=== PATIENT | male | born 1955 | race Caucasian/White ===

== ENCOUNTER 2024-06-02 22:56 | Inpatient (IN) | payer OTHER ==
[2024-06-03] MEDS ORDERED: Ondansetron ODT 4 MG TAB PO PRN (01:39)
[2024-06-03] MEDS ORDERED: Ondansetron PF 4 MG/2 ML Vial IVP PRN (01:39)
[2024-06-03] MEDS ORDERED: Calcium Carbonate 500 MG ChewTAB PO PRN (01:39)
[2024-06-03] MEDS ORDERED: Acetaminophen 650 MG Suppository PR PRN (01:39)
[2024-06-03 03:30] VITALS: BMI 39.0
[2024-06-03] MEDS: Vancomycin (BATCH) 2.5 GM in Premix 1 BAG IVPB SCH (05:55)
[2024-06-03] MEDS: Acetaminophen 325 MG TAB PO SCH (05:58)
[2024-06-03 06:22] LABS: #Basophils 0.06 10x3/uL (0.0-0.2); %Basophils 0.8 % (0.0-1.0); %Eosinophils 6.6 % (0.0-10.0); %Lymphocytes 26.2 % (21.0-51.0); %Monocytes 8.6 % (0.0-10.0); %Neutrophils 57.4 % (42.0-75.0); Hematocrit 42.5 % (42.0-52.0); Hemoglobin 14.2 g/dL (14.0-18.0); Mean Corpuscular HGB CONC 33.4 g/dL (32.0-36.0); Mean Corpuscular Hemoglobin 30.6 pg (27.0-31.0); Mean Corpuscular Volume 91.6 fL (78.0-98.0); Mean Platelet Volume 9.9 fL (7.4-10.4); Platelet Count 225 10x3/uL (130-400); RBC Distribution Width 14.6 % (11.5-14.5); Red Blood Cell (RBC) Count 4.64 mill/uL (4.70-6.10)
[2024-06-03 06:43] LABS: ALT (SGPT) 17 U/L (8-55); AST (SGOT) 19 U/L (5-34); Albumin 3.1 g/dL (3.4-4.8); Alkaline Phosphatase 64 U/L (40-110); Anion Gap 12 mmol/L (10-20); BUN (Urea Nitrogen) 18 mg/dL (8.4-25.7); Bilirubin, Total 0.6 mg/dL (0.2-1.2); Calc. Creatinine Clearance 143 mL/min (70-130); Calcium 8.5 mg/dL (7.8-10.44); Carbon Dioxide 24 mmol/L (23-31); Chloride 106 mmol/L (98-107); Estimated GFR 91; Globulin 4.6 g/dL (2.4-3.5); Glucose 117 mg/dL (83-110); Protein, Total 7.7 g/dL (5.8-8.1); Sodium 138 mmol/L (136-145)
[2024-06-03] MEDS ORDERED: Vancomycin (BATCH) 1.5 GM in Premix 1 BAG IVPB SCH (09:00)
[2024-06-03] MEDS: Oxybutynin 5 MG TAB PO SCH (09:02)
[2024-06-03] MEDS: Amlodipine 10 MG TAB PO SCH (09:02)
[2024-06-03] MEDS: Furosemide 20 MG TAB PO SCH (09:02)
[2024-06-03] MEDS: Famotidine/PF 20 mg/2ml Vial SLOW IVP SCH (09:03)
[2024-06-03] MEDS: Famotidine 20 MG TAB PO SCH (09:03)
[2024-06-03] MEDS: Lisinopril 10 MG TAB PO SCH (09:03)
[2024-06-03] MEDS: Calcium Carbonate 600 MG + Vit D TAB PO SCH (09:03)
[2024-06-03] MEDS: Simvastatin 10 MG TAB PO SCH (22:07)
[2024-06-03] MEDS: VANCOMYCIN 1.25 GM/250 ML BAG 1.25 GM in Premix 1 BAG IVPB SCH (22:07)
[2024-06-04 06:47] LABS: Vancomycin, Random 21.8 ug/mL (See Comment)
[2024-06-04] MEDS: Vancomycin 1 GM in Premix 1 BAG IVPB SCH (20:41)
[2024-06-05 06:00] LABS: Hematocrit 44.5 % (42.0-52.0); Hemoglobin 14.9 g/dL (14.0-18.0); Mean Corpuscular HGB CONC 33.5 g/dL (32.0-36.0); Mean Corpuscular Hemoglobin 30.7 pg (27.0-31.0); Mean Corpuscular Volume 91.6 fL (78.0-98.0); Mean Platelet Volume 10.1 fL (7.4-10.4); Platelet Count 213 10x3/uL (130-400); RBC Distribution Width 14.7 % (11.5-14.5); Red Blood Cell (RBC) Count 4.86 mill/uL (4.70-6.10)
[2024-06-05 06:24] LABS: Anion Gap 9 mmol/L (10-20); BUN (Urea Nitrogen) 22 mg/dL (8.4-25.7); Calc. Creatinine Clearance 131 mL/min (70-130); Calcium 8.7 mg/dL (7.8-10.44); Carbon Dioxide 25 mmol/L (23-31); Chloride 107 mmol/L (98-107); Estimated GFR 82; Glucose 122 mg/dL (83-110); Potassium 3.9 mmol/L (3.5-5.1); Sodium 137 mmol/L (136-145)
[2024-06-06 05:43] LABS: Vancomycin, Random 24.3 ug/mL (See Comment)
[2024-06-07] MEDS: Vancomycin 1.5 GRAM/300 ML BAG 1.5 GM in Premix 1 BAG IVPB SCH (09:25)
[2024-06-08 06:21] LABS: Hemoglobin 15.6 g/dL (14.0-18.0); Mean Corpuscular HGB CONC 33.2 g/dL (32.0-36.0); Mean Corpuscular Hemoglobin 30.1 pg (27.0-31.0); Mean Corpuscular Volume 90.6 fL (78.0-98.0); Platelet Count 231 10x3/uL (130-400); RBC Distribution Width 14.5 % (11.5-14.5); Red Blood Cell (RBC) Count 5.19 mill/uL (4.70-6.10)
[2024-06-08 07:01] LABS: Vancomycin, Random 14.3 ug/mL (See Comment)
[2024-06-08 07:03] LABS: Anion Gap 13 mmol/L (10-20); BUN (Urea Nitrogen) 26 mg/dL (8.4-25.7); Calc. Creatinine Clearance 125 mL/min (70-130); Calcium 8.7 mg/dL (7.8-10.44); Carbon Dioxide 23 mmol/L (23-31); Chloride 106 mmol/L (98-107); Estimated GFR 78; Glucose 119 mg/dL (83-110); Potassium 3.9 mmol/L (3.5-5.1); Sodium 138 mmol/L (136-145)
[2024-06-08 14:57] VITALS: TEMP 98.3
[2024-06-08 15:01] VITALS: BP 114/77
[2024-06-08] MEDS: Cephalexin 250 MG CAP PO SCH (15:36)
== END 2024-06-08 17:09 | DRG 603 ==
LOC: EEVIPCON 06-03 00:11 → T4-B 06-03 00:11 → OBSVTOIN 06-03 12:01
PROVIDERS: ADMIT Student in an Organized Health Care Education/Training Program; ATTEND Internal Medicine
DX: L03.116 Cellulitis of left lower limb (principal); I10 Essential (primary) hypertension; Z86.73 Personal history of transient ischemic attack (TIA), and cerebral infarction without residual deficits; Z99.3 Dependence on wheelchair; E66.9 Obesity, unspecified; E78.5 Hyperlipidemia, unspecified; Z68.39 Body mass index [BMI] 39.0-39.9, adult
CPT/HCPCS: 36415; 36416; 80048; 80053; 80202; 82565; 85025; 85027; 93970; 96374; G0378; J3370; J3490

== ENCOUNTER 2025-01-07 18:37 | Inpatient (IN) | payer OTHER ==
[~2025-01-07 18:37] MED LIST: Iopamidol-370 76% 500 ML MDV (1 ML CHARGE) ONE
[2025-01-07 19:10] LABS: #Basophils 0.05 10x3/uL (0.0-0.2); #Eosinophils 0.06 10x3/uL (0.0-0.7); #Monocytes 0.35 10x3/uL (0.11-0.59); #Neutrophils 13.29 10x3/uL (1.40-6.50); %Basophils 0.4 % (0.0-1.0); %Eosinophils 0.4 % (0.0-10.0); %Lymphocytes 2.4 % (21.0-51.0); %Monocytes 2.5 % (0.0-10.0); %Neutrophils 93.6 % (42.0-75.0); Hematocrit 43.7 % (42.0-52.0); Hemoglobin 14.4 g/dL (14.0-18.0); Mean Corpuscular Hemoglobin 30.5 pg (27.0-31.0); Mean Corpuscular Volume 92.6 fL (78.0-98.0); Platelet Count 236 10x3/uL (130-400); Red Blood Cell (RBC) Count 4.72 mill/uL (4.70-6.10); White Blood Cell (WBC) Count 14.19 10x3/uL (4.8-10.8)
[2025-01-07 19:24] LABS: Lipase 12 U/L (8-78)
[2025-01-07 19:27] LABS: Acetaminophen Less than 10 mcg/mL (Less than 10); Salicylate Less than 8.0 mg/dL (Less than 8.0)
[2025-01-07 19:28] LABS: ALT (SGPT) 46 U/L (Less than 45); AST (SGOT) 51 U/L (11-34); Albumin 3.3 g/dL (3.1-4.5); Alkaline Phosphatase 79 U/L (40-110); Anion Gap 16 mmol/L (10-20); BUN (Urea Nitrogen) 20 mg/dL (8.4-25.7); Bilirubin, Total 0.7 mg/dL (0.3-1.2); CK (CPK) 183 U/L (30-200); Calc. Creatinine Clearance 0 mL/min (70-130); Calcium 8.5 mg/dL (7.8-10.44); Carbon Dioxide 23 mmol/L (23-31); Chloride 103 mmol/L (98-107); Globulin 4.1 g/dL (2.4-3.5); Glucose 113 mg/dL (83-110); Potassium 4.3 mmol/L (3.5-5.1); Sodium 138 mmol/L (136-145)
[2025-01-07 19:31] LABS: Troponin I Less than 0.010 ng/mL (< 0.028)
[2025-01-07] MEDS ORDERED: Ondansetron PF 4 MG/2 ML Vial ONE (21:10)
[2025-01-07] MEDS ORDERED: Ketorolac Tromethamine 30 MG (1 mL) VIAL ONE (21:10)
[2025-01-07 21:54] LABS: Bacteria/HPF None Seen HPF (None Seen); CAUTI Indications for Culture Alt mental st,lethar; Glucose, Urine (Dipstick) Normal (Negative); Leukocyte Negative Leu/uL (Negative); Protein, Urine (Dipstick) Negative (Neg-Trace); RBC/HPF 0-3 HPF (0-3); Specific Gravity, Urine 1.026 (1.002-1.036); WBC/HPF 0-3 HPF (0-3)
[2025-01-07 21:58] LABS: Urine Culture Reflex No No
[2025-01-07 22:01] LABS: Cocaine Metabolite Screen Negative (Negative); THC/Cannabinoid Screen Negative (Negative); Tricyclic Screen Negative (Negative)
[2025-01-08 00:08] VITALS: BMI 38.9
[2025-01-08] MEDS: Vancomycin (BATCH) 2.5 GM in Premix 1 BAG IVPB SCH (00:08)
[2025-01-08] MEDS: Albumin 5% 12.5 GM (250 mL) BOT IVPB SCH (00:32)
[2025-01-08 02:00] LABS: Troponin I 0.022 ng/mL (< 0.028)
[2025-01-08] MEDS ORDERED: Ondansetron PF 4 MG/2 ML Vial IVP PRN (03:17)
[2025-01-08] MEDS ORDERED: Calcium Carbonate 500 MG ChewTAB PO PRN (03:17)
[2025-01-08] MEDS ORDERED: Acetaminophen 325 MG TAB PO PRN (03:17)
[2025-01-08] MEDS ORDERED: Electrolyte Replacement Protocol 1 EACH FS SCH (03:30)
[2025-01-08 04:08] LABS: Albumin 3.1 g/dL (3.1-4.5); Anion Gap 13 mmol/L (10-20); BUN (Urea Nitrogen) 21 mg/dL (8.4-25.7); BUN/Creatinine Ratio 16.41; Calc. Creatinine Clearance 98 mL/min (70-130); Calcium 7.9 mg/dL (7.8-10.44); Carbon Dioxide 21 mmol/L (23-31); Chloride 109 mmol/L (98-107); Glucose 103 mg/dL (83-110); Potassium 3.4 mmol/L (3.5-5.1); Sodium 140 mmol/L (136-145)
[2025-01-08 04:13] LABS: Hematocrit 43.0 % (42.0-52.0); Hemoglobin 14.1 g/dL (14.0-18.0); Mean Corpuscular Hemoglobin 30.6 pg (27.0-31.0); Mean Corpuscular Volume 93.3 fL (78.0-98.0); Platelet Count 200 10x3/uL (130-400); Red Blood Cell (RBC) Count 4.61 mill/uL (4.70-6.10); White Blood Cell (WBC) Count 32.35 10x3/uL (4.8-10.8)
[2025-01-08 04:15] LABS: Troponin I 0.031 ng/mL (< 0.028)
[2025-01-08 04:35] LABS: Vancomycin, Random 20.2 ug/mL (See Comment)
[2025-01-08 05:05] LABS: SARS-CoV-2 E Target Negative; SARS-CoV-2 N2 Target Negative; SARS-CoV-2 NAA Rapid Test Not Detected (NotDetected); SARS-CoV-2 RdRP gene Negative
[2025-01-08] MEDS: Vancomycin 1.25 GM / NS 250 ML VIAL-2-BAG IVPB SCH (08:58)
[2025-01-08] MEDS ORDERED: Vancomycin (BATCH) 1.5 GM/300 ML BAG IVPB SCH (09:00)
[2025-01-08] MEDS: Aspirin 81 mg Enteric Coated Tablet ONE (17:56)
[2025-01-08] MEDS: Famotidine/PF 20 mg/2ml Vial SLOW IVP SCH (20:31)
[2025-01-08] MEDS: Vancomycin 1 GM in Premix 1 BAG IVPB SCH (20:31)
[2025-01-08] MEDS: Enoxaparin 40 MG (0.4 mL) SYRINGE SC SCH (20:31)
[2025-01-09 05:09] LABS: #Basophils 0.06 10x3/uL (0.0-0.2); #Eosinophils Less than 0.03 10x3/uL (0.0-0.7); #Monocytes 0.95 10x3/uL (0.11-0.59); #Neutrophils 22.52 10x3/uL (1.40-6.50); %Basophils 0.2 % (0.0-1.0); %Eosinophils 0.0 % (0.0-10.0); %Lymphocytes 3.2 % (21.0-51.0); %Monocytes 3.8 % (0.0-10.0); %Neutrophils 90.1 % (42.0-75.0); Hematocrit 37.8 % (42.0-52.0); Hemoglobin 12.5 g/dL (14.0-18.0); Mean Corpuscular Hemoglobin 30.5 pg (27.0-31.0); Mean Corpuscular Volume 92.2 fL (78.0-98.0); Platelet Count 197 10x3/uL (130-400); Red Blood Cell (RBC) Count 4.10 mill/uL (4.70-6.10); White Blood Cell (WBC) Count 25.01 10x3/uL (4.8-10.8)
[2025-01-09 05:19] LABS: ALT (SGPT) 52 U/L (Less than 45); AST (SGOT) 45 U/L (11-34); Albumin 2.7 g/dL (3.1-4.5); Alkaline Phosphatase 59 U/L (40-110); Anion Gap 12 mmol/L (10-20); BUN (Urea Nitrogen) 29 mg/dL (8.4-25.7); Bilirubin, Total 0.6 mg/dL (0.3-1.2); Calc. Creatinine Clearance 136 mL/min (70-130); Calcium 8.0 mg/dL (7.8-10.44); Carbon Dioxide 20 mmol/L (23-31); Chloride 109 mmol/L (98-107); Globulin 3.7 g/dL (2.4-3.5); Glucose 114 mg/dL (83-110); Potassium 3.5 mmol/L (3.5-5.1); Sodium 137 mmol/L (136-145)
[2025-01-09 05:47] LABS: Platelet Adequacy Comment Platelets Normal; Polychromasia SLIGHT = 2-3 cells HPF (0-2)
[2025-01-09] MEDS ORDERED: Acetaminophen 325 MG TAB PO PRN (07:40)
[2025-01-09] MEDS: Aspirin 81 mg Enteric Coated Tablet PO SCH (09:21)
[2025-01-09] MEDS: Potassium Bicarbonate/Cit Ac 20 MEQ TAB PO SCH (09:26)
[2025-01-09] MEDS: Vancomycin 1.25 GM / NS 250 ML VIAL-2-BAG IVPB SCH (20:30)
[2025-01-10 05:40] LABS: #Basophils 0.07 10x3/uL (0.0-0.2); #Eosinophils 0.15 10x3/uL (0.0-0.7); #Monocytes 1.07 10x3/uL (0.11-0.59); #Neutrophils 17.22 10x3/uL (1.40-6.50); %Basophils 0.4 % (0.0-1.0); %Eosinophils 0.8 % (0.0-10.0); %Lymphocytes 5.0 % (21.0-51.0); %Monocytes 5.4 % (0.0-10.0); %Neutrophils 87.5 % (42.0-75.0); Hematocrit 38.9 % (42.0-52.0); Hemoglobin 12.9 g/dL (14.0-18.0); Mean Corpuscular Hemoglobin 30.5 pg (27.0-31.0); Mean Corpuscular Volume 92.0 fL (78.0-98.0); Platelet Count 195 10x3/uL (130-400); Red Blood Cell (RBC) Count 4.23 mill/uL (4.70-6.10); White Blood Cell (WBC) Count 19.68 10x3/uL (4.8-10.8)
[2025-01-10 05:53] LABS: Vancomycin, Random 17.9 ug/mL (See Comment)
[2025-01-10 05:56] LABS: ALT (SGPT) 49 U/L (Less than 45); AST (SGOT) 37 U/L (11-34); Albumin 2.7 g/dL (3.1-4.5); Alkaline Phosphatase 64 U/L (40-110); Anion Gap 12 mmol/L (10-20); BUN (Urea Nitrogen) 23 mg/dL (8.4-25.7); Bilirubin, Total 0.6 mg/dL (0.3-1.2); Calc. Creatinine Clearance 165 mL/min (70-130); Calcium 8.3 mg/dL (7.8-10.44); Carbon Dioxide 20 mmol/L (23-31); Chloride 108 mmol/L (98-107); Globulin 4.2 g/dL (2.4-3.5); Glucose 120 mg/dL (83-110); Potassium 3.7 mmol/L (3.5-5.1); Sodium 136 mmol/L (136-145)
[2025-01-11 04:46] LABS: #Basophils 0.07 10x3/uL (0.0-0.2); #Eosinophils 0.34 10x3/uL (0.0-0.7); #Monocytes 0.99 10x3/uL (0.11-0.59); #Neutrophils 9.20 10x3/uL (1.40-6.50); %Basophils 0.6 % (0.0-1.0); %Eosinophils 2.8 % (0.0-10.0); %Lymphocytes 11.0 % (21.0-51.0); %Monocytes 8.1 % (0.0-10.0); %Neutrophils 75.6 % (42.0-75.0); Hematocrit 38.0 % (42.0-52.0); Hemoglobin 12.9 g/dL (14.0-18.0); Mean Corpuscular Hemoglobin 30.6 pg (27.0-31.0); Mean Corpuscular Volume 90.0 fL (78.0-98.0); Platelet Count 226 10x3/uL (130-400); Red Blood Cell (RBC) Count 4.22 mill/uL (4.70-6.10); White Blood Cell (WBC) Count 12.17 10x3/uL (4.8-10.8)
[2025-01-11 04:58] LABS: Anion Gap 11 mmol/L (10-20); BUN (Urea Nitrogen) 21 mg/dL (8.4-25.7); Calc. Creatinine Clearance 195 mL/min (70-130); Calcium 8.1 mg/dL (7.8-10.44); Carbon Dioxide 20 mmol/L (23-31); Chloride 108 mmol/L (98-107); Glucose 120 mg/dL (83-110); Potassium 3.3 mmol/L (3.5-5.1); Sodium 136 mmol/L (136-145)
[2025-01-11] MEDS: Potassium Bicarbonate/Cit Ac 20 MEQ TAB PER TUBE SCH (10:17)
[2025-01-11] MEDS: Lisinopril 10 MG TAB PO SCH (13:32)
[2025-01-11 17:00] LABS: Potassium 3.9 mmol/L (3.5-5.1)
[2025-01-12 05:02] LABS: Hematocrit 39.0 % (42.0-52.0); Hemoglobin 13.3 g/dL (14.0-18.0); Mean Corpuscular Hemoglobin 30.6 pg (27.0-31.0); Mean Corpuscular Volume 89.9 fL (78.0-98.0); Platelet Count 254 10x3/uL (130-400); Red Blood Cell (RBC) Count 4.34 mill/uL (4.70-6.10); White Blood Cell (WBC) Count 9.37 10x3/uL (4.8-10.8)
[2025-01-12 05:04] LABS: Vancomycin, Random 23.8 ug/mL (See Comment)
[2025-01-12 05:05] LABS: Anion Gap 11 mmol/L (10-20); BUN (Urea Nitrogen) 17 mg/dL (8.4-25.7); Calc. Creatinine Clearance 167 mL/min (70-130); Calcium 7.6 mg/dL (7.8-10.44); Carbon Dioxide 23 mmol/L (23-31); Chloride 106 mmol/L (98-107); Glucose 106 mg/dL (83-110); Magnesium 1.9 mg/dL (1.6-2.6); Potassium 3.8 mmol/L (3.5-5.1); Sodium 136 mmol/L (136-145)
[2025-01-12 05:57] LABS: Platelet Adequacy Comment Platelets Normal; RBC Morphology Within Normal Limits; Smudge Cells 7.9 %
[2025-01-12] MEDS: Lisinopril 10 MG TAB PO SCH (09:36)
[2025-01-12] MEDS: Magnesium 2 GM/50 ML(in water) 2 GM in Premix 1 BAG IVPB SCH (09:39)
[2025-01-12] MEDS: Simvastatin 10 MG TAB PO SCH (20:48)
[2025-01-13 04:58] LABS: Anion Gap 12 mmol/L (10-20); BUN (Urea Nitrogen) 18 mg/dL (8.4-25.7); Calc. Creatinine Clearance 165 mL/min (70-130); Calcium 8.1 mg/dL (7.8-10.44); Carbon Dioxide 22 mmol/L (23-31); Chloride 109 mmol/L (98-107); Glucose 118 mg/dL (83-110); Potassium 3.8 mmol/L (3.5-5.1); Sodium 140 mmol/L (136-145)
[2025-01-13 05:06] LABS: Hematocrit 39.5 % (42.0-52.0); Hemoglobin 13.5 g/dL (14.0-18.0); Mean Corpuscular Hemoglobin 30.5 pg (27.0-31.0); Mean Corpuscular Volume 89.4 fL (78.0-98.0); Platelet Count 305 10x3/uL (130-400); Red Blood Cell (RBC) Count 4.42 mill/uL (4.70-6.10); White Blood Cell (WBC) Count 11.78 10x3/uL (4.8-10.8)
[2025-01-13 06:50] LABS: Anisocytosis SLIGHT = 6-15 cells HPF (0-5); Macrocytosis SLIGHT = 6-15 cells HPF (0-5); Platelet Adequacy Comment Platelets Normal; Polychromasia SLIGHT = 2-3 cells HPF (0-2); Smudge Cells 6.8 %
[2025-01-14] MEDS: cefTRIAXone\\ROCEPHIN 2 GM in Sodium Chloride 0.9% 100 ML IVPB SCH (03:25)
[2025-01-14] MEDS: Cyanocobalamin 1000 MCG/ML VIAL IM SCH (13:18)
[2025-01-14 19:03] VITALS: BMI 38.9
[2025-01-15 04:35] LABS: Anion Gap 11 mmol/L (10-20); BUN (Urea Nitrogen) 14 mg/dL (8.4-25.7); Calc. Creatinine Clearance 142 mL/min (70-130); Calcium 8.0 mg/dL (7.8-10.44); Carbon Dioxide 26 mmol/L (23-31); Chloride 108 mmol/L (98-107); Glucose 111 mg/dL (83-110); Potassium 3.4 mmol/L (3.5-5.1); Sodium 142 mmol/L (136-145)
[2025-01-15 04:48] LABS: Hematocrit 41.1 % (42.0-52.0); Hemoglobin 13.6 g/dL (14.0-18.0); Mean Corpuscular Hemoglobin 29.9 pg (27.0-31.0); Mean Corpuscular Volume 90.3 fL (78.0-98.0); Platelet Count 385 10x3/uL (130-400); Red Blood Cell (RBC) Count 4.55 mill/uL (4.70-6.10); White Blood Cell (WBC) Count 10.40 10x3/uL (4.8-10.8)
[2025-01-15 05:43] LABS: Anisocytosis SLIGHT = 6-15 cells HPF (0-5); Macrocytosis SLIGHT = 6-15 cells HPF (0-5); Platelet Adequacy Comment Platelets Normal; Polychromasia SLIGHT = 2-3 cells HPF (0-2); Smudge Cells 7.7 %
[2025-01-16 05:06] LABS: Hematocrit 39.2 % (42.0-52.0); Hemoglobin 13.2 g/dL (14.0-18.0); Mean Corpuscular Hemoglobin 30.3 pg (27.0-31.0); Mean Corpuscular Volume 90.1 fL (78.0-98.0); Platelet Count 432 10x3/uL (130-400); Red Blood Cell (RBC) Count 4.35 mill/uL (4.70-6.10); White Blood Cell (WBC) Count 11.61 10x3/uL (4.8-10.8)
[2025-01-16 05:26] LABS: Anion Gap 12 mmol/L (10-20); BUN (Urea Nitrogen) 16 mg/dL (8.4-25.7); Calc. Creatinine Clearance 192 mL/min (70-130); Calcium 8.2 mg/dL (7.8-10.44); Carbon Dioxide 23 mmol/L (23-31); Chloride 108 mmol/L (98-107); Glucose 114 mg/dL (83-110); Potassium 3.5 mmol/L (3.5-5.1); Sodium 139 mmol/L (136-145)
[2025-01-16 05:57] LABS: Platelet Adequacy Comment Platelets Normal; RBC Morphology Within Normal Limits; Smudge Cells 7.8 %
[2025-01-16] MEDS: Cephalexin 250 MG CAP PO SCH (16:06)
[2025-01-16 19:36] VITALS: BP 162/79; TEMP 98.2
== END 2025-01-16 19:40 | DRG 871 ==
LOC: EEVIPCON 18:37 → ERS 18:37 → IMCU/EMU 22:12 → 2NO 01-11 13:56
PROVIDERS: ADMIT Student in an Organized Health Care Education/Training Program; ATTEND Emergency Medicine
PROC: 3E03329 Introduction of Other Anti-infective into Peripheral Vein, Percutaneous Approach (ICD-10-PCS; principal; 2025-01-07)
PROC: XX20X89 Monitoring of Brain Electrical Activity, Computer-aided Detection and Notification, New Technology Group 9 (ICD-10-PCS; 2025-01-07)
PROC: 30233J1 Transfusion of Nonautologous Serum Albumin into Peripheral Vein, Percutaneous Approach (ICD-10-PCS; 2025-01-08)
DX: A41.9 Sepsis, unspecified organism (principal); G93.41 Metabolic encephalopathy; L03.116 Cellulitis of left lower limb; E11.9 Type 2 diabetes mellitus without complications; I87.2 Venous insufficiency (chronic) (peripheral); I10 Essential (primary) hypertension; E87.6 Hypokalemia; I49.8 Other specified cardiac arrhythmias; E78.5 Hyperlipidemia, unspecified; Z86.73 Personal history of transient ischemic attack (TIA), and cerebral infarction without residual deficits; Z87.891 Personal history of nicotine dependence
CPT/HCPCS: 36415; 51701; 70450; 70496; 70498; 71045; 71275; 74177; 80048; 80053; 80069; 80202; 80306; 80307; 81001; 82140; 82550; 83036; 83605; 83690; 83735; 83880; 84443; 84484; 85025; 86141; 87040; 87081; 87400; 93005; 93010; 93306; 94760; 96365; 96366; 96375; 97139; J0692; J0696; J1308; J1650; J1885; J2270; J2405; J2543; J3373; J3420; J3475; J7050; J7120; P9045; Q9967; U0002